=== PATIENT | male | born 1965 | race African-American/Black ===

== ENCOUNTER 2025-06-13 11:23 | Outpatient (CLI) | payer BC | END 2025-06-13 11:24 | disposition home or self-care (01) | LOC: CSHSLEEP 11:23 | PROVIDERS: ATTEND Student in an Organized Health Care Education/Training Program | DX: G47.33 Obstructive sleep apnea (adult) (pediatric) (principal); R53.83 Other fatigue; R09.89 Other specified symptoms and signs involving the circulatory and respiratory systems; R51.9 Headache, unspecified; R06.83 Snoring; I10 Essential (primary) hypertension | CPT/HCPCS: 95800 ==